=== PATIENT | female | born 1985 | race Caucasian/White ===

== ENCOUNTER 2024-05-28 06:30 | Emergency (ER) | payer MEDICAID ==
[~2024-05-28] VITALS: Ht 147.3 cm; Wt 56.3 kg
[2024-05-28 06:32] VITALS: O2SAT 100
[2024-05-28] MEDS: ACETAMINOPHEN 325MG TABLET PO ONE (07:00)
[2024-05-28 07:01] VITALS: BP 131/96; PULSE 94; RESP 18; TEMP 36.9; O2SAT 99
[2024-05-28] MEDS: BENZONATATE 100MG CAPSULE PO ONE (07:19)
[2024-05-28] MEDS ORDERED: AMOX1TAB16 PO (08:10)
[2024-05-28] MEDS ORDERED: TOPUD PO (08:10)
== END 2024-05-28 09:32 | disposition home or self-care (01) ==
LOC: ER 06:30
DX: J02.9 Acute pharyngitis, unspecified (principal)
CPT/HCPCS: 71045; 99283

== ENCOUNTER 2024-11-23 20:37 | Emergency (ER) | payer OTHER ==
[~2024-11-23] VITALS: Ht 147.3 cm; Wt 56.3 kg
[~2024-11-23 20:37] MED LIST: AMOX1TAB16 PO; TOPUD PO
[2024-11-23 21:05] VITALS: TEMP 36.8; O2SAT 99
[2024-11-23] MEDS: KETOROLAC 15MG/ML VIAL IM ONE (22:24)
[2024-11-23] MEDS ORDERED: NAPR-1176 MT (22:48)
[2024-11-23] MEDS ORDERED: LIDO-53 TP (22:48)
[2024-11-23 23:18] VITALS: BP 168/100; PULSE 71; RESP 18; O2SAT 98
== END 2024-11-23 23:19 | disposition home or self-care (01) ==
LOC: ER 20:37
DX: M25.572 Pain in left ankle and joints of left foot (principal); E78.00 Pure hypercholesterolemia, unspecified; I10 Essential (primary) hypertension; Z79.1 Long term (current) use of non-steroidal anti-inflammatories (NSAID); Z90.49 Acquired absence of other specified parts of digestive tract; Z90.710 Acquired absence of both cervix and uterus
CPT/HCPCS: 73610; 73630; 96372; 99284; J1885; Z7610